=== PATIENT | male | born 1995 | race Caucasian/White ===

== ENCOUNTER 2017-04-24 19:32 | Emergency (ER) | payer MEDICAID ==
[2017-04-24] MEDS ORDERED: KETOROLAC 60 MG/2 ML VIAL IM STA (20:13)
[2017-04-24] MEDS ORDERED: KETOROLAC 60 MG/2 ML VIAL ONE (20:19)
--- NOTE | 2017-04-24 21:08 | ED Physician Documentation ---
PD HPI LOWER EXT INJURY - Stated complaint Stated Complaint: KNEE PX - Chief complaint Chief Complaint: General - History obtained from History obtained from: Patient - History of Present Illness PD HPI LOW EXT INJURY LOCATION: Left, Knee Type of injury: Twist Where injury occurred: Home Timing - onset: How many days ago (3) Timing - details: Gradual onset, Still present Improved by: Immobilization Worsened by: Moving, Palpating Associated symptoms: Swelling Contributing factors: No: Anticoagulated, Prosthetic joint Similar symptoms before: No diagnosis Recently seen: Not recently seen - Additional information Additional information: Patient is a 21 year old male who is presenting to the emergency department for left sided knee pain. patient states that for the last few day he has had pain , swelling and a locking sensation in his knee. Patient denies any specific trauma. Patient does have a history of bad knees and has had surgery on his right knee in the past. Review of Systems Constitutional: denies: Fever, Chills, Myalgias, Fatigue, Weight Loss Eyes: reports: Reviewed and negative Ears: denies: Ear pain, Drainage/discharge Nose: reports: Reviewed and negative Throat: reports: Reviewed and negative Cardiac: denies: Chest pain / pressure, Palpitations, Calf pain Respiratory: denies: Cough GI: denies: Nausea, Vomiting : denies: Dysuria, Frequency Skin: denies: Rash, Abrasion (s), Laceration (s) Musculoskeletal: reports: Extremity pain, Joint pain, Extremity swelling, Joint swelling, Pain with weight bearing Neurologic: denies: Generalized weakness, Focal weakness, Numbness, Altered mental status Immunocompromised: denies: Immunocompromised PD PAST MEDICAL HISTORY - Past Medical History Past Medical History: No Cardiovascular: None Respiratory: Asthma Neuro: None Endocrine/Autoimmune: None GI: None : None HEENT: None Psych: None Derm: None - Past Surgical History Past Surgical History: Yes Ortho: Other - Present Medications Home Medications: Ambulatory Orders Medication Instructions Recorded Confirmed No Known Home Medications [No 04/24/17 04/24/17 Known Home Medications] - Allergies Allergies/Adverse Reactions: Allergies Allergy/AdvReac Type Severity Reaction Status Date / Time No Known Drug Allergies Allergy Verified 04/24/17 19:58 - Social History Does the pt smoke?: Yes Smoking Status: Current some day smoker Does the pt drink ETOH?: Yes ETOH Use: Beer Does the pt have substance abuse?: Yes Substance Use and Type: Marijuana - Immunizations Immunizations are current?: Yes Immunizations: TDAP >10years/unknown - POLST Patient has POLST: No PD ED PE NORMAL - Vitals Vital signs reviewed: Yes - General General: Alert and oriented X 3, No acute distress - HEENT HEENT: Atraumatic, PERRL, Pharynx benign - Neck Neck: Supple, no meningeal sign - Cardiac Cardiac: RRR, No murmur - Respiratory Respiratory: No respiratory distress - Abdomen Abdomen: Non distended - Derm Derm: Normal color, Warm and dry, No rash - Neuro Neuro: Alert and oriented X 3, fish smoker 2-12 intact, No motor deficit, No sensory deficit, Normal speech - Psych Psych: Normal mood PD ED PE EXPANDED - Extremities Extremities: Left knee (tenderness and swelling of left knee, non specific joint laxity), Motor intact, Sensory intact, Vascular intact, Tendon intact Results - Vitals Vitals: Vital Signs - 24 hr 04/24/17 19:37 Temperature 36.6 C Heart Rate 71 Respiratory 16 Rate Blood Pressure 119/64 O2 Saturation 100 Oxygen O2 Source Room air - Rads (name of study) no fracture or dislocation Radiology: Final report received (no fracture or joint effusion) PD MEDICAL DECISION MAKING - ED course Complexity details: reviewed old records, reviewed results, re-evaluated patient , considered differential, d/w patient ED course: Patient was seen and examined at bedside. Patient was treated with toradol and sent for imaging. when patient returned the results were reviewed. Patient was placed in a knee immobilizer. Patient was made aware of the findings and was stable for discharge and outpatient follow up. Departure - Departure Disposition: 01 Home, Self Care Condition: Good Instructions: ED Sprain Knee Follow-Up: primary,care provider [Other] - Within 1 week Comments: Your diagnostics today were within normal limits. there is no acute fracture or dislocation. You should continue to ice and elevate your knee. You should take motrin or tylenol as needed for pain. You should wear the brace for comfort or an maxx bandage. You should follow up with your pmd if your symptoms persist for more than the next week. You may return to the emergency department at any time for new, worsening or uncontrollable symptoms.
--- NOTE | 2017-04-24 21:20 | XRAY Preliminary Report ---
Exam: XR Knee 3 View LT IMPRESSION: No fracture or joint effusion. [facility] SITE ID: [id number]
--- NOTE | 2017-04-24 21:22 | XRAY Report ---
EXAM: LEFT KNEE RADIOGRAPHY EXAM DATE: 04/24/2017 08:53 PM. CLINICAL HISTORY: Left knee pain and swelling. COMPARISON: None. TECHNIQUE: 3 views. FINDINGS: Bones: Normal. No fractures or bone lesions. Joints: Normal. No effusion. No subluxations. Soft Tissues: Normal. No soft tissue swelling. IMPRESSION: No fracture or joint effusion. [facility] Referring Provider Line: [phone] SITE ID: [id number]
[2017-04-24 21:26] VITALS: BP 119/64
== END 2017-04-24 21:48 | disposition home or self-care (01) ==
LOC: ED 19:32
DX: S83.92XA Sprain of unspecified site of left knee, initial encounter (principal); X50.9XXA Other and unspecified overexertion or strenuous movements or postures, initial encounter; Y92.009 Unspecified place in unspecified non-institutional (private) residence as the place of occurrence of the external cause; F17.200 Nicotine dependence, unspecified, uncomplicated
CPT/HCPCS: 96372; 99283

== ENCOUNTER 2019-03-11 01:47 | Emergency (ER) | payer MEDICAID ==
[2019-03-11 01:54] VITALS: BP 118/75
--- NOTE | 2019-03-11 02:57 | ED Physician Documentation ---
PD HPI OPHTHO - Stated complaint Stated Complaint: EYE PX - Chief complaint Chief Complaint: Heent - History obtained from History obtained from: Patient - History of Present Illness Timing - onset: How many weeks ago (1.5 weeks ago) Timing - details: Gradual onset Quality / character: Itching Associated symptoms: Redness, Swelling, Discharge Contributing factors: No: Recent URI, FB, UV light (welding etc), Wears glasses, Wears contacts Similar symptoms before: Has not had sx before Recently seen: Not recently seen Review of Systems Constitutional: denies: Fever Eyes: reports: Discharge, Irritation. denies: Loss of vision, Decreased vision, Photophobia Ears: reports: Reviewed and negative Nose: reports: Reviewed and negative Throat: denies: Sore throat PD PAST MEDICAL HISTORY - Past Medical History Past Medical History: Yes Cardiovascular: None Respiratory: Asthma Endocrine/Autoimmune: None GI: None : None HEENT: None Psych: None Derm: None - Past Surgical History Past Surgical History: Yes Ortho: Other - Present Medications Home Medications: Ambulatory Orders Medication Instructions Recorded Confirmed No Known Home Medications 04/24/17 03/11/19 - Allergies Allergies/Adverse Reactions: Allergies Allergy/AdvReac Type Severity Reaction Status Date / Time No Known Drug Allergies Allergy Verified 03/11/19 01:54 - Social History Does the pt smoke?: Yes Smoking Status: Current every day smoker Does the pt drink ETOH?: Yes Does the pt have substance abuse?: Yes - Immunizations Immunizations are current?: Yes Immunizations: TDAP >10years/unknown - POLST Patient has POLST: No PD ED PE NORMAL - Vitals Vital signs reviewed: Yes - General General: Alert and oriented X 3, No acute distress, Well developed/nourished - HEENT HEENT: PERRL, EOMI, Moist mucous membranes PD ED PE EXPANDED - Eyes Eyes: Injected conj/sclera (moderate right eye, mild left eye conjunctival injection. mild right eyelid (upper) swelling. trace discharge right eye) Results - Vitals Vitals: Vital Signs - 24 hr 03/11/19 01:52 Temperature 36.2 C L Heart Rate 85 Respiratory 16 Rate Blood Pressure 118/75 O2 Saturation 98 Oxygen O2 Source Room air PD MEDICAL DECISION MAKING - ED course Complexity details: considered differential, d/w patient Departure - Departure Disposition: Home, Self Care Clinical Impression: Conjunctivitis Condition: Good Health Concerns: eye irritation Plan of Treatment: antibiotic drops as prescribed Care Goals: resolution of symptoms Assessment: see diagnosis Instructions: ED Conjunctivitis Nonspecific Comments: Use the antibiotic drop as follows: 1 drop in each eye four times per day for 7 days
[2019-03-11] MEDS ORDERED: POLYMYXIN B/TRIMETH OPHTH DROPS EACHEYE STA (03:10)
== END 2019-03-11 03:20 | disposition home or self-care (01) ==
LOC: ED 01:47
DX: H10.9 Unspecified conjunctivitis (principal); F17.200 Nicotine dependence, unspecified, uncomplicated
CPT/HCPCS: 99282; 99283; A9270

== ENCOUNTER 2020-01-10 14:21 | Outpatient (CLI) | payer MEDICAID | END 2020-01-10 14:22 | disposition EMS.NT | LOC: EMS 14:21 | PROVIDERS: ATTEND Surgery | DX: R51 Headache (principal); Y04.2XXA Assault by strike against or bumped into by another person, initial encounter ==

== ENCOUNTER 2020-01-10 16:52 | Emergency (ER) | payer MEDICAID ==
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
[2020-01-10 18:45] VITALS: BP 118/75
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
== END 2020-01-10 18:43 | disposition home or self-care (01) ==
LOC: ED 16:52
DX: S05.12XA Contusion of eyeball and orbital tissues, left eye, initial encounter (principal); H11.32 Conjunctival hemorrhage, left eye; S02.2XXA Fracture of nasal bones, initial encounter for closed fracture; Y04.2XXA Assault by strike against or bumped into by another person, initial encounter; F17.200 Nicotine dependence, unspecified, uncomplicated
CPT/HCPCS: 70486; 99284

== ENCOUNTER 2020-08-18 23:56 | Outpatient (CLI) | payer MEDICAID | END 2020-08-18 23:57 | disposition EMS.NT | LOC: EMS 23:56 | PROVIDERS: ATTEND Surgery | DX: Z03.89 Encounter for observation for other suspected diseases and conditions ruled out (principal) ==

== ENCOUNTER 2021-02-06 09:57 | Outpatient (CLI) | payer MEDICAID | END 2021-02-06 09:58 | disposition EMS.NT | LOC: EMS 09:57 | DX: Z03.89 Encounter for observation for other suspected diseases and conditions ruled out (principal) ==

== ENCOUNTER 2024-03-13 11:51 | Emergency (ER) | payer MEDICAID ==
[2024-03-13 12:05] VITALS: O2SAT 100
[2024-03-13] MEDS: LIDOCAINE-MPF 2% 5 ML VIAL SUBQ ONE (12:52)
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
[2024-03-13] MEDS: BACITRACIN ZINC OINT 1 PACKET TOP STA (14:14)
[2024-03-13 14:24] VITALS: BP 128/72
== END 2024-03-13 14:22 | disposition home or self-care (01) ==
LOC: ED 11:51
DX: S01.511A Laceration without foreign body of lip, initial encounter (principal); Y04.2XXA Assault by strike against or bumped into by another person, initial encounter; J45.909 Unspecified asthma, uncomplicated; F17.200 Nicotine dependence, unspecified, uncomplicated
CPT/HCPCS: 12011; 99283